=== PATIENT | male | born 1965 | race Caucasian/White ===

== ENCOUNTER 2022-10-26 14:50 | Outpatient (CLI) | payer MEDICAID, SELFPAY ==
--- NOTE | 2022-10-26 15:03 | MR_ITS ---
WS: [id number] MRI BRAIN WITH AND WITHOUT CONTRAST HISTORY: STROKE COMPARISON: None available. TECHNIQUE: Multiplanar imaging performed through the brain with MultiHance 17 ml's IV. Diffusion-weighted imaging normal. There are numerous bilateral T2 and FLAIR signal hyperintensities throughout the white matter. This is more than expected for small vessel ischemic disease for a patie nt of this age. Some of these white matter lesions are very closely associated with the corpus callos um. No white matter lesions in the cerebellum or aisha. Several white matter lesions are present withi n the temporal lobes, RIGHT greater than LEFT. No susceptibility artifacts or prior lacunar infarcts. Ventricles and extra-axial spaces are normal. Clivus and pituitary gland are normal. Visualized posterior fossa and brainstem are also normal. Postcontrast images are negative for masses or vascular malformations. Matter lesions do not enhance. Dural venous sinuses are normal. Paranasal sinuses: Well aerated with no significant disease. Mastoid air cells: Normal. Calvarium and scalp: Normal. MR/MR head wo/w con [id number] IMPRESSION: 1. Normal diffusion-weighted imaging. No acute infarct. 2. Numerous bilateral T2 and FLAIR signal hyperintensities throughout the whit e matter. Some of these lesions abut the corpus callosum and involve all suprat entorial lobes including the temporal lobes. White matter lesions are more than expected for small vessel ischemic disease for a patient of this age. Due to t he distribution and appearance consider demyelinating disease such as multiple sclerosis. There are no active demyelinating lesions. Additional etiologies to consider are vasculitis and changes associated with diabetes or migraines. 3. No enhancing masses.
[2022-10-26] MEDS: gadobenate dimeglumine 20 mL vial IV (16:35)
== END 2022-10-26 14:51 | disposition home or self-care (01) ==
LOC: RAD 14:53
PROVIDERS: Visit Provider Nurse Practitioner Family
DX: I63.9 Cerebral infarction, unspecified (principal)
CPT/HCPCS: 70553; A9577

== ENCOUNTER 2022-11-22 13:27 | Outpatient (CLI) | payer MEDICAID, SELFPAY ==
--- NOTE | 2022-11-22 14:15 | USCV_ITS ---
Robert Kate Age: 57 Gender: M : 1965 Exam Date: 11/22/2022 14:27 Ordering Phys: Louis Aguayo Technologist: Ana Abernathy Exam Location: [facility] – [place] Indication: Stroke BP: 116 / 70 HR: 65 Rhythm: Sinus Technical Quality: Good MEASUREMENTS (Male / Female) Normal Values 2D ECHO LV Diastolic Diameter PLAX 4.5 cm 4.2 - 5.9 / 3.9 - 5.3 cm LV Systolic Diameter PLAX 2.9 cm IVS Diastolic Thickness 1.5 cm 0.6 - 1.0 / 0.6 - 0.9 cm IVS Systolic Thickness 1.5 cm LVPW Diastolic Thickness 0.9 cm 0.6 - 1.0 / 0.6 - 0.9 cm LVPW Systolic Thickness 1.4 cm LVOT Diameter 2.0 cm LV Ejection Fraction 2D Teich 63.4 % LV Ejection Fraction MOD 2C 72.7 % LV Ejection Fraction 2C AL 73.0 % LA Diameter 3.1 cm LA Width 3.3 cm LA Height 4.2 cm RA Width 2.8 cm RA Height 4.2 cm Aorta at Sinotubular Diameter 2.3 cm IVC Diameter 1.5 cm DOPPLER AV Peak Velocity 142.0 cm/s LVOT Peak Velocity 139.0 cm/s AV Area Cont Eq vti 3.1 cm squared AV Area Cont Eq pk 3.1 cm squared MV Area PHT 4.6 cm squared Mitral E to A Ratio 1.5 MV E' Velocity 53.0 cm/s Mitral E to MV E' Ratio 9.7 Mitral E to LV E' Lateral Ratio 8.8 Mitral E to LV E' Septal Ratio 10.6 TR Peak Velocity 68.0 cm/s TR Peak Gradient 1.8 mmHg Right Atrial Pressure 5.0 mmHg Pulmonary Artery Systolic Pressu 6.8 mmHg RV Acceleration Time 0.2 s RV Ejection Time 0.3 s RV AcT/ET 0.5 FINDINGS Left Ventricle Normal left ventricular size and systolic function, EF 69 %. No regional wall motion abnormalities. Right Ventricle The right ventricle is normal in size and function. Right Atrium The right atrium is normal in size. Left Atrium The left atrium is normal in size. Mitral Valve No gross abnormalities noted.trace mitral valve regurgitation. Aortic Valve Thickened aortic valve. Tricuspid Valve No gross abnormalities noted Pulmonic Valve No gross abnormalities noted Pericardium Normal pericardium without effusion. Aorta Normal aortic annulus size. IVC The inferior vena cava appears normal. CONCLUSIONS Normal left ventricular size and systolic function, EF 69 %. No regional wall motion abnormalities. Trace mitral valve regurgitation. Thickened aortic valve. There is no pericardial effusion. There are no intracardiac masses. No similar previous studies are available for comparison Dr Chelsea Galeano MD [facility] (Electronically Signed) Final Date: 22 November 2022 19:23 S
== END 2022-11-22 13:28 | disposition home or self-care (01) ==
PROVIDERS: PCP Nurse Practitioner Family; Visit Provider Nurse Practitioner Family
DX: I63.9 Cerebral infarction, unspecified (principal); I08.0 Rheumatic disorders of both mitral and aortic valves
CPT/HCPCS: 93306

== ENCOUNTER 2022-12-11 10:41 | Outpatient (CLI) | payer MEDICAID, SELFPAY ==
--- NOTE | 2022-12-11 10:47 | USCV_ITS ---
Robert Kate Age: 57 Gender: M : 1965 Exam Date: 12/11/2022 11:05 Ordering Phys: Louis Aguayo Technologist: Cam Camacho [place] [facility] [place] Indication: stroke Risk Factors: Previous Vascular Surgery: Right Brachial BP: / Left Brachial BP: / Right Left Velocity (cm/s) Spectral Plaque Velocity (cm/s) Spectral Plaque Syst/Diast Broadening Syst/Diast Broadening 87.20/ 15.40 Prox CCA 134.50/ 40.90 67.50/ 12.00 Mid CCA 97.00 / 25.40 36.20/ 7.20 Distal CCA 78.30 / 30.90 / Prox ICA 339.20/ 99.90 / Mid ICA 169.30/ 56.40 / Distal ICA 154.90/ 54.70 83.50 ECA 83.90 ICA/CCA 1.74 Antegrade Vertebral Antegrade 98.10/ 29.80 cm/s 58.10/ 17.90 cm/s Tri Subclavian Bi 98.60 108.1 0 FINDINGS Comparison: none available. 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 Dampened waveforms in the right CCA. Marked elevation of velocity left CCA and ICA. Elevated systolic and diastolic velocity in the ICA. Marked turbulence. Antegrade vertebral arteries. CONCLUSIONS Complete occlusion right ICA. Left ICA stenosis 70-99%. Report called to office at time of dictation. Dr. Tea Watkins DO (Electronically Signed) Final Date: 11 December 2022 12:00 S
== END 2022-12-11 10:42 | disposition home or self-care (01) ==
LOC: RAD 10:43
PROVIDERS: PCP Nurse Practitioner Family; Visit Provider Nurse Practitioner Family
DX: I63.9 Cerebral infarction, unspecified (principal); I65.23 Occlusion and stenosis of bilateral carotid arteries
CPT/HCPCS: 93880

== ENCOUNTER 2023-03-13 07:07 | Outpatient (CLI) | payer MEDICAID, SELFPAY ==
[2023-03-13 07:31] VITALS: BMI 25.8
--- NOTE | 2023-03-13 07:32 | ECG_ITS ---
[facility] Test Date: 2023-03-13 Pat Name: Robert Kate Department: Room: Gender: Male [employer]: : 1965 Requested By: Chelsea Galeano Order Number: [id number] Alistair MD: Nehemiah Chiu M.D. Interpretive Statements NAME OF STUDY: LEXISCAN SESTAMIBI STRESS TEST INDICATION: [Chest Pain] Procedure: At the baseline, the blood pressure was 137/70 mmHg with a heart rate of 69 bpm. The electrocardiogram showed normal sinus rhythm, normal axis with normal ST and T's. The Lexiscan was infused over a period of 20 seconds. A total of 0.4 mg of Lexiscan was infused. The stress phase was continued for a total of 5 minutes. Heart rate was at the end of stress phase was 81 bpm and a blood pressure of 106/48 mmHg. The EKG at the peak infusion revealed normal sinus rhythm with no significant ST-T wave changes. Sestamibi was injected 20 seconds after the Lexiscan infusion. Blood pressure at the end of recovery phase was 110/58 mmHg with a heart rate of 77 bpm. Conclusion: 1. Normal EKG response to Lexiscan infusion 2. No Lexiscan induced chest pain or cardiac arrhythmia. 3. Normal blood pressure and heart rate response. 4. Sestamibi/sestamibi perfusion scan pending; see separate report. Electronically Signed On 03-23-2023 14:53:05 CDT by Nehemiah Chiu M.D. [id number]
--- NOTE | 2023-03-13 07:33 | NMCV_ITS ---
NM abelardo perf SPECT r/s* [id number] Robert Kate Age: 57 Gender: M : 1965 Exam Date: 03/13/2023 08:19 Ordering Phys: Chelsea Galeano MD ([email or web address]) Technologist: MICHELLE Vogel Exam Location: [facility] [place] Indications: CORONARY ANGIOPLASTY STATUS, CHEST PAIN STRESS TEST Please [facility] for [facility] findings IMAGE PROTOCOL Rest/Stress 1 Lexiscan Day Radiopharmaceutical Dose (mCi) Administration Site Administered by Rest: Tc-99m 11.0 IV Major Yanez, TWISTER OPERATOR Sestamibi Stress:Tc-99m 31.1 IV Major Yanez, TWISTER OPERATOR Sestamibi Rest: 13-Mar-2023 60 Discovery 630 Stress: 13-Mar-2023 30 Discovery 630 0.4mg Lexiscan. Supine position only as patient was unable to lay prone. SPECT RESULTS Technical Quality: Excellent Raw Data Analysis: Normal Image Corrections: No attenuation or motion correction applied Summed Stress Score: 0 Summed Rest Score: 0 Summed Difference Score: 0 PERFUSION FINDINGS SPECT images demonstrate homogeneous tracer distribution throughout the myocardium. FUNCTIONAL RESULTS (calculated via Gated SPECT) Stress Image LV EF (%): 68 Stress EDV (mL):99 TID: 1.32 Stress ESV (mL):32 FUNCTIONAL FINDINGS: There is normal left ventricular systolic function. Elevated TID ratio IMPRESSIONS 1. Normal myocardial perfusion imaging with no evidence of ischemia 2. LV systolic function is normal. 3. Elevated TID ratio. In the absence of perfusion abnormality, significance of this finding is equivocal Nehemiah Chiu MD (Electronically Signed) Final Date: 19 March 2023 13:35 S
[2023-03-13] MEDS: regadenoson 0.4 Mg/5 ml Syringe IVP (09:48)
[2023-03-13 10:12] VITALS: BP 134/78; PULSE 70
== END 2023-03-13 07:08 | disposition home or self-care (01) ==
LOC: CDL 07:08
PROVIDERS: PCP Nurse Practitioner Family; Visit Provider Internal Medicine Cardiovascular Disease
DX: R07.9 Chest pain, unspecified (principal); Z98.61 Coronary angioplasty status
CPT/HCPCS: 36415; 78452; 93017; 96374; A9500; J2785

== ENCOUNTER 2023-03-27 10:06 | Outpatient (CLI) | payer MEDICAID, SELFPAY ==
--- NOTE | 2023-03-27 10:18 | USCV_ITS ---
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 Normal resting ABIs and TBIs bilaterally. 2. No evidence of any significant arterial obstruction, based on the above findings. Dr Chelsea Galeano MD [facility] (Electronically Signed) Final Date: 27 March 2023 19:16 S
== END 2023-03-27 10:07 | disposition home or self-care (01) ==
LOC: RAD 10:09
PROVIDERS: PCP Nurse Practitioner Family; Visit Provider Nurse Practitioner Family
DX: I73.9 Peripheral vascular disease, unspecified (principal)
CPT/HCPCS: 93922

== ENCOUNTER 2023-12-06 10:27 | Outpatient (CLI) | payer MEDICAID, SELFPAY ==
[2023-12-06 12:11] LABS: D Dimer 1.56 ug/mLFEU (0-0.59)
== END 2023-12-06 10:28 | disposition home or self-care (01) ==
LOC: LAB 10:33
PROVIDERS: PCP Nurse Practitioner Family; Visit Provider Nurse Practitioner Family
DX: Z01.89 Encounter for other specified special examinations (principal)
CPT/HCPCS: 36415; 85378